=== PATIENT | female | born 1945 | race Hispanic/Latino ===

== ENCOUNTER 2019-02-16 11:24 | Day surgery (SDC) | payer MEDICARE, OTHER ==
[~2019-02-16 11:24] MED LIST: IOPIDINE ONE; MYDRIACYL ONE; NEOFRIN ONE
[2019-02-16] MEDS ORDERED: MYDRIACYL OD ONE (11:44)
[2019-02-16] MEDS ORDERED: NEOFRIN OD ONE (11:44)
[2019-02-16] MEDS ORDERED: IOPIDINE OD ONE (11:44)
[2019-02-16 14:44] VITALS: BP 137/59
== END 2019-02-16 11:25 | disposition home or self-care (01) ==
LOC: OR 11:24
PROVIDERS: ATTEND Specialist
DX: H26.491 Other secondary cataract, right eye (principal); G43.909 Migraine, unspecified, not intractable, without status migrainosus; I10 Essential (primary) hypertension; J45.909 Unspecified asthma, uncomplicated; K21.9 Gastro-esophageal reflux disease without esophagitis; M19.90 Unspecified osteoarthritis, unspecified site; E89.0 Postprocedural hypothyroidism; Z79.899 Other long term (current) drug therapy; Z98.41 Cataract extraction status, right eye; Z98.42 Cataract extraction status, left eye; Z90.49 Acquired absence of other specified parts of digestive tract; Z90.710 Acquired absence of both cervix and uterus; Z98.890 Other specified postprocedural states; Z98.891 History of uterine scar from previous surgery; Z87.440 Personal history of urinary (tract) infections; Z96.652 Presence of left artificial knee joint; Z86.2 Personal history of diseases of the blood and blood-forming organs and certain disorders involving the immune mechanism; Z88.8 Allergy status to other drugs, medicaments and biological substances

== ENCOUNTER 2019-02-28 07:26 | Outpatient (CLI) | payer MEDICARE, OTHER ==
--- NOTE | 2019-02-28 08:40 | Cat Scan Report ---
CT ABDOMEN AND PELVIS WITHOUT CONTRAST HISTORY: N39.0 URINARY TRACT INFECTION SITE NOT SPECIFIED. Patient complains of having side and back pain for a week COMPARISON: CT pelvis dated 07/31/2014 TECHNIQUE: Axial CT images were obtained through the abdomen and pelvis without IV contrast. Sagittal and coronal reformatted images. All CT scans at this location are performed using CT dose reduction for ALARA by means of automated exposure control. FINDINGS: CT ABDOMEN: Lung Bases: Clear. Liver: No significant abnormality. Biliary: No significant abnormality. Cholecystectomy changes. Spleen: No significant abnormality. Unenlarged. Pancreas: No significant abnormality. Adrenals: No significant abnormality. Kidneys: The kidneys are normal size, contour and position. A 1.6 cm exophytic cyst is noted in the m id right kidney. No evidence for nephrolithiasis or mass. The ureters appear normal course and calibe r although they are poorly visualized secondary to lack of retroperitoneal fat. No obvious ureteral s tones. Lymphatics: No lymphadenopathy. Vasculature: No significant abnormality. Bowel/Peritoneum: There is a large amount of fecal material throughout the length of the colon. No ev idence for bowel obstruction, focal inflammation or obvious mass. No free fluid or free air. Believe I see the appendix medial to the cecum which is unremarkable. CT PELVIS: : Hysterectomy changes are suspected. The bladder and distal ureter regions are unremarkable. Bilat eral inguinal hernia repair and pelvic floor repair are suspected. Osseous Structures: Severe dextrocurvature of the thoracolumbar spine is evident with advanced diffus e degenerative changes. There is 1 cm right lateral subluxation of L2 on L3. No fracture or suspiciou s bony lesion is identified. Right sacral insufficiency fracture has healed since the previous exam. Additional Findings: None IMPRESSION: Unremarkable kidneys and renal collecting systems. Constipation. Severe scoliosis with advanced degenerative changes. Surgical changes as described. No acute process is identified. Signer Name: Zeus Sanders Jr, MD Signed: 02/28/2019 8:35 AM Workstation Name: [id number]
== END 2019-02-28 07:27 | disposition home or self-care (01) ==
LOC: CT 07:26
PROVIDERS: ATTEND Urology
DX: K40.20 Bilateral inguinal hernia, without obstruction or gangrene, not specified as recurrent (principal); N39.0 Urinary tract infection, site not specified; M47.815 Spondylosis without myelopathy or radiculopathy, thoracolumbar region; M99.13 Subluxation complex (vertebral) of lumbar region; J45.909 Unspecified asthma, uncomplicated; I10 Essential (primary) hypertension; K21.9 Gastro-esophageal reflux disease without esophagitis; M19.90 Unspecified osteoarthritis, unspecified site; Z90.49 Acquired absence of other specified parts of digestive tract; Z90.710 Acquired absence of both cervix and uterus
CPT/HCPCS: 74176

== ENCOUNTER 2019-03-23 11:54 | Day surgery (SDC) | payer MEDICARE, OTHER ==
[2019-03-23] MEDS ORDERED: MYDRIACYL OS ONE (12:10)
[2019-03-23] MEDS ORDERED: IOPIDINE OS ONE ×2 (12:10→13:03)
[2019-03-23] MEDS ORDERED: NEOFRIN OS ONE (12:10)
[2019-03-23 12:19] VITALS: BP 119/68
== END 2019-03-23 13:06 | disposition home or self-care (01) ==
LOC: OR 11:54
PROVIDERS: ATTEND Specialist
DX: H26.492 Other secondary cataract, left eye (principal); G43.909 Migraine, unspecified, not intractable, without status migrainosus; I10 Essential (primary) hypertension; J45.909 Unspecified asthma, uncomplicated; K21.9 Gastro-esophageal reflux disease without esophagitis; E03.9 Hypothyroidism, unspecified; M19.90 Unspecified osteoarthritis, unspecified site; Z96.652 Presence of left artificial knee joint; Z79.899 Other long term (current) drug therapy; Z88.8 Allergy status to other drugs, medicaments and biological substances; Z98.41 Cataract extraction status, right eye; Z98.42 Cataract extraction status, left eye; Z90.49 Acquired absence of other specified parts of digestive tract; Z98.891 History of uterine scar from previous surgery; Z90.710 Acquired absence of both cervix and uterus; Z87.440 Personal history of urinary (tract) infections; Z72.89 Other problems related to lifestyle; Z98.890 Other specified postprocedural states; Z86.2 Personal history of diseases of the blood and blood-forming organs and certain disorders involving the immune mechanism